=== PATIENT | male | born 1990 | race Caucasian/White ===

== ENCOUNTER 2024-09-27 17:11 | Outpatient (CLI) | payer MEDICAID, SELFPAY ==
[2024-09-27 18:42] LABS: Amphetamine/Metha Screen,Urine Negative ng/ml (<1000); Benzodiazepines Screen,Urine Negative ng/ml (<200)
[2024-09-27 18:43] LABS: Barbiturates Screen,Urine Negative ng/ml (<200)
[2024-09-27 18:44] LABS: Cannabinoid Screen,Urine Negative ng/ml (<50); Cocaine Screen,Urine Negative ng/ml (<300)
[2024-09-27 18:45] LABS: Methadone Screen,Urine Negative ng/ml (<300)
[2024-09-27 18:46] LABS: Opiate Screen,Urine Negative ng/ml (<300); Phencyclidine Screen,Urine Negative ng/ml (<25)
[2024-09-27 18:50] LABS: Basophils # 0.1 K/mm3 (0-0.2); Basophils % 1.1 % (0.1-2.0); Eosinophils # 0.5 K/mm3 (0.0-0.4); Eosinophils % 5.8 % (0.1-12.0); Hematocrit 45.3 % (42.0-52.0); Hemoglobin 15.3 g/dL (14.1-18.0); Lymphocytes # 3.2 K/mm3 (0.7-4.5); Lymphocytes % 41.2 % (10-50); Mean Corpuscular HGB Conc 33.9 g/dL (31.8-35.4); Mean Corpuscular Volume 88.6 fl (80-94); Mean Platelet Volume 8.2 fl (7.4-10.4); Monocytes # 0.5 K/mm3 (0.1-1.0); Neutrophils # 3.6 K/mm3 (1.8-7.8); Platelet Count 207 K/mm3 (142-424); Red Blood Count 5.12 M/mm3 (4.60-6.20); Red Cell Distribution Width 13.9 % (11.5-17.5); White Blood Count 7.7 K/mm3 (4.8-10.8)
[2024-09-27 19:01] LABS: Albumin Level 4.7 g/dl (3.5-5.0); Chloride 102 mmol/L (98-107); Potassium 4.7 mmoL/L (3.5-5.1); Sodium 141 mmol/L (136-145)
[2024-09-27 19:04] LABS: Alanine Aminotransferase 43 U/L (12-78); Albumin/Globulin Ratio 1.5 (1.1-1.8); Alkaline Phosphatase 52 U/L (38-126); Anion Gap 14.7 mEq/L (5-15); Aspartate Amino Transferase 37 U/L (17-59); Bilirubin,Total 0.5 mg/dl (0.2-1.3); Blood Urea Nitrogen 14 mg/dl (9-20); Carbon Dioxide 29 mmol/L (22.0-30.0); Estimated Glomerular Filt Rate 111 ml/min (>60); GFR (African American) 135 ML/MIN (>60); Globulin 3.1 g/dL (1.3-3.2); Total Protein,Serum 7.8 g/dl (6.3-8.2)
[2024-09-27 19:05] LABS: Calcium 9.6 mg/dl (8.4-10.2); Glucose 77 mg/dl (74-100)
[2024-09-27 19:33] LABS: Ethyl Alcohol < 10 mg/dl (0-10)
[2024-09-29 06:16] LABS: Hep A Ab, Total Negative (Negative)
[2024-09-29 12:20] LABS: Rapid Plasma Reagin Ab Titer Non Reactive titer (NonRea<1:1)
[2024-09-29 20:09] LABS: QuantiFERON-TB Gold Plus Negative (Negative)
[2024-10-01 00:03] LABS: Hep A Ab, IGM Negative (Negative)
[2024-10-01 00:04] LABS: HBsAg Screen Negative (Negative); HCV Ab Reactive (Non Reactive); Hep B Core Ab, IgM Negative (Negative)
[2024-10-01 21:08] LABS: Buprenorphine, Urine Positive (Cutoff=10)
[2024-10-02 04:17] LABS: HIV 1 RNA, Real time PCR <20 copies/mL (.)
[2024-10-06 09:58] LABS: PDF: SCANNED IMAGE
[2024-10-06 10:51] LABS: Acetyl Fentanyl NEGATIVE; Acetyl Norfentanyl NEGATIVE; Alfentanil NEGATIVE; Fentanyl NEGATIVE; Norfentanyl NEGATIVE; Norsufentanil NEGATIVE; Sufentanil NEGATIVE
== END 2024-09-27 23:59 | disposition home or self-care (01) ==
LOC: LAB 17:15
PROVIDERS: Visit Provider Nurse Practitioner Family
DX: F11.20 Opioid dependence, uncomplicated (principal); F19.99 Other psychoactive substance use, unspecified with unspecified psychoactive substance-induced disorder; Z20.2 Contact with and (suspected) exposure to infections with a predominantly sexual mode of transmission; Z20.5 Contact with and (suspected) exposure to viral hepatitis; Z91.89 Other specified personal risk factors, not elsewhere classified; Z01.89 Encounter for other specified special examinations
CPT/HCPCS: 36415; 80053; 80074; 80307; 80320; 80354; 85025; 86480; 86593; 86706; 86708; 86803; 87491; 87536; 87563; 87591; 87798; G0480

== ENCOUNTER 2025-06-07 18:22 | Emergency (ER) | payer MEDICAID, SELFPAY ==
[2025-06-07 18:52] VITALS: BP 140/84; PULSE 74; RESP 18; TEMP 36.7; O2SAT 99; BMI 47.1
--- OUTSIDE RECORDS SUMMARY | 2025-06-07 19:07 | XMS_ITS | Data Portability ---
Author Organization [facility] Address [address] [place] [address] Assessment Encounter Date Assessment Date Assessment LastModified by Organization Details LastModified Time 08/21/2023 08/21/2023 Will call with l ab results when available. Begin prescribed medication as written. Advised to drink plenty of fluids, run a cool-mist humidifier in room at night, gargle salt water for sore throat, and get plenty of rest. Patient should avoid over-exertion and reduce exposure to irritants such as smoke, cold, dry air, and dust. Antihistamine and decongestant usage was discussed and recommendations made. Patient understood these instructions and will follow up in the office in 7-10 days if symptoms not improving. Or sooner if symptoms worsen. Educated on s/s that indicate need for immediate evaluation in the ED. Patient verbalized understanding. Not available 08/21/2023 13:52:21 Plan of Treatment Reminders Order Date Submit Date Provider Last Modified By Organization Details Last Modified Time Details Appointments None recorded. Lab CMP, serum or plasma 2022 023 MOISES [facility], [address], [address], [place], [address], 08:38:08 vitamin B12 + folate, serum or blood 2022 023 [facility], [address], [address] [address], [place], [address], 08:38:09 magnesium, serum or plasma 2022 023 MO[facility]ES [facility], [address], [address], [place], [address], 3 08:38:09 Referral None recorded. Procedures None recorded. Surgeries None recorded. Imaging None recorded. Medication Orders amoxicillin 500 mg capsule 2022 023 [email or web address] [facility], [address], [place], [address], 3 14:59:04 Patient TargetsNo targets recorded. Patient InstructionsNo instructions recorded. Reason for Referral None Reported. Results Created Date Observation Date Name Description Value Unit Range Abnormal Flag Note LastModifiedBy Organization Detail LastModifiedTime 08/21/2008/22/2023 COMP. METAB OLIC PANEL (14) glucose 96 mg/dL 70-99 Not Available [facility] ([facility]) [address] [place], [address], 08/22/2023 08:38:08 08/21/20 23 08/22/2023 COMP. METAB OLIC PANEL (14) BUN 10 mg/dL 6-20 Not Available [facility] ([facility]) [address] [place], [address], 08/22/2023 08:38:08 08/21/20 23 08/22/2023 COMP. METAB OLIC PANEL (14) creatinine 0.81 mg/dL 0.76-1 .27 Not Available [facility] ([facility]) [address] [place], [address], 08/22/2023 08:38:08 08/21/2008/22/2023 COMP. METAB OLIC PANEL (14) eGFR 120 mL/mi n/1.7 3 >59 Not Available [facility] ([facility]) [address] [place], [address], 08/22/2023 08:38:08 08/21/20 23 08/22/2023 COMP. METAB OLIC PANEL (14) BUN/creatini ne ratio 12 9-20 Not Available [facility] ([facility]) [address] [place], [address], 08/22/2023 08:38:08 08/21/2008/22/2023 COMP. METAB OLIC PANEL (14) sodium 140 mmol/ L 134-14 4 Not Available [facility] ([facility]) [address] [facility] [place], [address], 08/22/2023 08:38:08 08/21/2008/22/2023 COMP. METAB OLIC PANEL (14) potassium 4.4 mmol/ L 3.5-5. 2 Not Available [facility] ([facility]) [address] [place], [address], 08/22/2023 08:38:08 08/21/2008/22/2023 COMP. METAB OLIC PANEL (14) chloride 103 mmol/ L 96-106 Not Available [facility] ([facility]) [address] [place], [address], 08/22/2023 08:38:08 08/21/2008/22/2023 COMP. METAB OLIC PANEL (14) carbon dioxide, total 27 mmol/ L 20-29 Not Available [facility] ([facility]) [address] [place], [address], 08/22/2023 08:38:08 08/21/20 23 08/22/2023 COMP. METAB OLIC PANEL (14) calcium 8.9 mg/dL 8.7-10 .2 Not Available [facility] ([facility]) [address] [place], [address], 08/22/2023 08:38:08 08/21/2008/22/2023 COMP. METAB OLIC PANEL (14) protein, total 6.8 g/dL 6.0-8. 5 Not Available [facility] ([facility]) [address] [place], [address], 08/22/2023 08:38:08 08/21/20 23 08/22/2023 COMP. METAB OLIC PANEL (14) albumin 4.0 g/dL 4.1-5. 1 below low normal Not Available [facility] ([facility]) [address] [facility], [place], [address], 08/22/2023 08:38:08 08/21/2008/22/2023 COMP. METAB OLIC PANEL (14) globulin, total 2.8 g/dL 1.5-4. 5 Not Available [facility] ([facility]) [address] [place], [address], 08/22/2023 08:38:08 08/21/2008/22/2023 COMP. METAB OLIC PANEL (14) A/G ratio 1.4 1.2-2. 2 Not Available [facility] ([facility]) [address] [facility], [place], [address], 08/22/2023 08:38:08 08/21/2008/22/2023 COMP. METAB OLIC PANEL (14) bilirubin, total 0.5 mg/dL 0.0-1. 2 Not Available [facility] ([facility]) [address] [facility], [place], [address], 08/22/2023 08:38:08 08/21/2008/22/2023 COMP. METAB OLIC PANEL (14) alkaline phosphatase 46 IU/L 44-121 Not Available [facility] ([facility]) [address] [place], [address], 08/22/2023 08:38:08 08/21/2008/22/2023 COMP. METAB OLIC PANEL (14) AST (SGOT) 20 IU/L 0-40 Not Available [facility] ([facility]) [address] [place], [address], 08/22/2023 08:38:08 08/21/2008/22/2023 COMP. METAB OLIC PANEL (14) ALT (SGPT) 30 IU/L 0-44 Not Available [facility] ([facility]) [address] [facility], [place], [address], 08/22/2023 08:38:08 08/21/2008/22/2023 VITAM IN B12 AND FOLAT E vitamin B12 359 pg/mL 232-12 45 Not Available [facility] ([facility]) [address] [facility], [place], [address], 08/22/2023 08:38:09 08/21/2008/22/2023 VITAM IN B12 AND FOLAT E folate (folic acid), serum 9.3 NG/mL >3.0 A serum folat e vi ntrat ion of less than 3.1 ng/mL is consi dered to repre sent clini ele defic iency . Not Available [facility] ([facility]) [address] [facility], [place], [address], 08/22/2023 08:38:09 08/21/2008/22/2023 MAGNE SIUM magnesium 2.0 mg/dL 1.6-2. 3 Not Available [facility] ([facility]) [address] [facility], [place], [address], 08/22/2023 08:38:09 Result Notes None recorded. Procedures Surgical History Date Name Laterality Status Provider Name and Address Organization Details Recorded Time Cerumen Removal completed Krystina Dalal, [employer] [facility] [address], [place], [address], [facility] - [facility] 08/21/2023 13:48:56 Imaging Results None recorded. Procedure Notes None recorded. Medical Equipment None Reported. Allergies No known drug allergies Medications Name Sig Start Date Stop Date Status Note LastModified by Organization Details LastModified Time amoxicill in 500 mg capsule TAKE ONE (1) CAPSULE EVERY 12 HOURS BY ORAL ROUTE FOR 10 DAYS. 10/06 completed Not Available Not Available Not Available tramadol 1 q 12h 09/10 completed tramadol 50mg;Rec orded Status: Recorded on: 09/03/20 11 9:22AM;U ser: [email or web address] pearce;Est. Completi on: 09/10/20 11;Indic ation: - (-5);Jerri nted: 09/03/20 11 Not Available Not Available Not Available Keflex 1 bid 09/17 completed keflex 500mg;Re corded Status: Recorded on: 09/03/20 11 9:22AM;U ser: [email or web address] rydada;Est. Completi on: 09/17/20 11;Indic ation: - (-5);Jerri nted: 09/03/20 11 Not Available Not Available Not Available Mucinex D 1 bid 09/13 completed mucinex d;Record ed Status: Recorded on: 09/03/20 11 9:22AM;U ser: som pearce;Est. Completi on: 09/13/20 11;Indic ation: - (-5);Jerri nted: 09/03/20 11 Not Available Not Available Not Available Vitals Date Recorded Body weight Body mass index (BMI) Body height Body temperature Heart rate Oxygen saturation Oxygen saturation in Arterial blood by Pulse oximetry Respiratory rate Pain severity - 0-10 verbal numeric rating [Score] - Reported Systolic And Diastolic Provider Name and Address Organization Details Last Updated DateTime 3 764556. 9 g 38.4 kg/m2 180.34 cm 97.4 [degF] 81 /min 96 % 96 % 20 /min 0 136/86 mm[Hg] Christina Youngblood [place] - [facility] 3 13:13:04 Social History Question Answer Notes LastModified by Organizat ion Details LastModified Time Tobacco Smoking Status Current Every Day Smoker Christina badillo, [place] - [facility] 08/21/2023 13:17:07 What Is Your Level Of Caffeine Consumption? Moderate Information not available 08/21/2023 What Was The Date Of Your Most Recent Tobacco Screening? 08/21/2023 Information not available 08/21/2023 What Is Your Current Pack Years? 20-29packyear s Information not available 08/21/2023 At What Age Did You Start Smoking Tobacco? 10 Information not available 08/21/2023 How Much Tobacco Do You Smoke? 1 PPD Information not available 08/21/2023 Has Tobacco Cessation Counseling Been Provided? Yes Information not available 08/21/2023 On What Date Was Tobacco Cessation Counseling Provided? 08/21/2023 Information not available 08/21/2023 How Many Years Have You Smoked Tobacco? 22 Information not available 08/21/2023 Sex: Male Functional Status Question Answer Note LastModified by Organizat ion Details LastModified Time Do you use any illicit or recreational drugs? No Information not available 08/21/2023 Do you or have you ever used any other forms of tobacco or nicotine? No Information not available 08/21/2023 What is your level of alcohol consumption? None Information not available 08/21/2023 Mental Status None recorded. Family History Relationship Description Onset Age of this Age Resolved Age Notes LastModified by Organization Details LastModified Time Father Heart disease Not available 2022 13:15:45 Father Diabetes mellitus Not available 2022 13:16:00 Mother Heart disease Not available 2022 13:15:45 Mother Diabetes mellitus Not available 2022 13:16:01 Medical History No medical history recorded. Immunizations Vaccine Type Date Status Note Provider Nam e and Address Organization Details Recorded Time COVID-19, mRNA, LNP-S, PF, 100 mcg/0.5mL dose or 50 mcg/0.25mL dose 09/24/2021 completed Christina badillo, [place] - [facility] 08/21/2023 13:14:50 COVID-19, mRNA, LNP-S, PF, 100 mcg/0.5mL dose or 50 mcg/0.25mL dose 10/17/2021 completed Christina Youngblood null, [place] - [facility] 08/21/2023 13:14:50 Past Encounters Encounter ID Performer Location Encounter Start Date Encounter Closed Date Diagnosis/Indication Diagnosis SNOMED-CT Code Diagnosis ICD10 Code Diagnosis Note [id number] [facility] [address] [place] [address] 09/03/2011 00:00:00 [id number] Krystina Dalal, MARLEEN [facility] [address] [place] [id number] 08/21/2023 12:54:22 08/21/2023 14:09:41 Paresthesia of upper limb 68223717 R20.2 Impacted c erumen in right ear 9832472059 462305 H61.21 Cough 79911968 R05.9 Acute left otitis media 995147031 H66.92 Health Concerns Section Related Observation LastModified by Organization Detai ls LastModified Time None Recorded Concern Status LastModified by Organization Details LastModified Time None Recorded Advance Directives Directive None Recorded Payers Insurance Date Sequence Insurance Name Policy Number Policy Boyce Covered Member ID Boyce Member ID Guarantor Name 08/21/2023 1 *SELF PAY* Tiburcio Johnson 08/21/2023 1 *SELF PAY* Tiburcio Johnson
[2025-06-07 21:51] LABS: Hematocrit 41.2 % (42.0-52.0); Hemoglobin 13.8 g/dL (14.1-18.0); Immature Granulocytes % 0.3 %; Mean Corpuscular HGB Conc 33.5 g/dL (31.8-35.4); Mean Corpuscular Hemoglobin 29.9 pg (27.0-31.2); Mean Corpuscular Volume 89.2 fl (80-94); Nucleated Red Blood Cells % 0 %; Platelet Count 222 K/mm3 (142-424); Red Blood Count 4.62 M/mm3 (4.60-6.20); Red Cell Distribution Width-SD 43.5 fL; White Blood Count 7.0 K/mm3 (4.8-10.8)
[2025-06-07 21:58] LABS: Albumin Level 4.1 g/dl (3.5-5.0); Chloride 99 mmol/L (98-107); Potassium 4.2 mmoL/L (3.5-5.1); Sodium 136 mmol/L (136-145)
--- NOTE | 2025-06-07 21:58 | ED_ITS ---
Discharge Plan Disposition Patient Disposition: Home, Self-Care Condition: Good Prescriptions Prescriptions: No Action buprenorphine-naloxone 8-2 mg tablet, sublingual 1.5 tab SUBLINGUAL DAILY Patient Comments: PLACE 1.5 TABLETS BY SUBLINGUAL ROUTE EVERY DAY Referrals Follow up/Referrals: Provider,MD Stefan [Primary Care Provider, Medical] - See instructions Suhas Vasquez MD [Staff Physician, Family Practice] - See instructions Activity Restrictions/Add. Instructions Additional Instructions/Restrictions: Please wear compression stockings to help with swelling. If you have any new or worsening symptoms please return. I want you to call and get an appointment with primary care Dr. Vasquez. Clinical Impressions Clinical Impression: Bilateral edema of lower extremity Stand Alone Forms Stand Alone Forms: Work/School Release Instructions Patient Instructions: DI for Dependent Edema Print Language Print Language: Sinhala Discharge ED Provider: Fco Cano Adult HPI General Chief complaint: Weakness Stated complaint: Legs swelling,body aches,no energy Time Seen by Provider: 06/07/25 18:45 Mode of Arrival: Ambulatory Source of Information: Patient and Significant Other Description of Symptoms (Recalled from ER Triage Doc. by RN): Patient presents to ED with c/o leg swelling with pitting edema, generally feeling weak, and pain all over. Patient reports this is not a new issue, states he was seen elsewhere and given a diuretic. Patient reports he was recently dx with hepatits c and given a medication for it which has caused his leg swelling. History of Present Illness HPI narrative: This is a 34-year-old male patient, with past medical history of IV drug use currently in remission as well as hepatitis C, who is presenting to the emergency department today for evaluation of his lower extremities. He states that on his right lower extremity he feels an indention in the pretibial region that is causing him a great deal of concern. He states that he was seen by a healthcare provider recently and they did not perform any workup for this indention in his leg and they sent him home. Upon inquiring about other symptoms, the patient does tell me that he has had worsening lower extremity edema bilaterally over the course of last 4 months. He has recently become employed and is working for several hours at a time where he is not able to sit down. He has not had any fevers or chills. No night sweats. No weight loss. He has not had any erythema or asymmetry of his lower extremities. He specifically denies chest pain and shortness of breath. Related Data Home Medications ?Medication ?Instructions ?Recorded ?Confirmed buprenorphine 8 mg-naloxone 2 mg 1.5 tab sublingual DA DYLAN 06/07/25 06/07/25 sublingual tablet Allergies Allergy/AdvReac Type Severity Reaction Status Date / Time No Known Allergies Allergy Verified 06/07/25 19:39 [facility] Disclaimer: The information contained in this section may have been updated after the patient was seen, as this information can be updated by other users. Medical History (Updated 06/07/25 @ 23:02 by Fco Cano DO) Drug abuse in remission Hepatitis C Social History Smoking Status: Current every day smoker alcohol intake: former current occupational status: employed Travel in the last 8 weeks?: None ROS Obtained: Yes Systems reviewed as appropriate & no additional complaints except as documented Physical Exam General General appearance: alert and in no apparent distress Head Head exam: atraumatic and normocephalic Eye Eye exam: Present PERRL and EOMI ENT ENT exam: Present normal oropharynx and mucous membranes moist Neck Neck exam: Present full ROM and trachea midline Respiratory Respiratory exam: Present normal lung sounds bilaterally; Absent respiratory distress Cardiovascular Cardiovascular exam: Present regular rate and normal rhythm Abdominal Exam Abdominal exam: Present soft; Absent tenderness Extremities Exam Extremities exam: Present normal inspection; Absent tenderness Back Exam Back exam: Absent vertebral tenderness Neurological Exam Neurological exam: Present alert and oriented X3 Skin Skin exam: Present warm and dry Medical Decision Making Medical Records Medical records reviewed: Yes I reviewed the patient's medical records. Screening: Per USPSTF and CDC recommendations, given the prevalence of disease in our region, it is our hospital?s policy to screen for HIV and viral Hepatitis for all patients aged 18 and over and those with ongoing risk factors. Cirilo Inquiry Pt receiving controlled substance: No Cirilo was queried for this patient: No Vital Signs: 06/07/25 18:52 06/07/25 18:52 06/07/25 22:00 Temperature 98.1 F 98.1 F Temperature Source Oral Oral Pulse Rate 74 70 Pulse Rate [Right] 74 Respiratory Rate 18 18 16 Blood Pressure 140/84 162/94 H Blood Pressure [Right Arm] 140/84 Blood Pressure Mean [Right Arm] 102 Blood Pressure Source Blood Pressure Position 02 Sat by Pulse Oximetry 99 99 100 Oxygen Delivery Method Room Air Room Air Room Air 06/07/25 23:05 Temperature 98.0 F Temperature Source Oral Pulse Rate 88 Pulse Rate [Right] Respiratory Rate 20 Blood Pressure 144/82 H Blood Pressure [Right Arm] Blood Pressure Mean [Right Arm] Blood Pressure Source Automatic Cuff Blood Pressure Position Standing 02 Sat by Pulse Oximetry Oxygen Delivery Method Room Air Lab Data Lab Results 06/07/25 21:40: WBC 7.0, RBC 4.62, Hgb 13.8 L, Hct 41.2 L, MCV 89.2, MCH 29.9, MCHC 33.5, RDW 13.3, Plt Count 222, MPV 9.9, Neut % (Auto) 49.1, Lymph % (Auto) 38.0, Frederick % (Auto) 8.1, Eos % (Auto) 4.2, Baso % (Auto) 0.3, Neut # (Auto) 3.4, Lymph # (Auto) 2.6, Frederick # (Auto) 0.6, Eos # (Auto) 0.3, Baso # (Auto) 0.0, Sodium 136, Potassium 4.2, Chloride 99, Carbon Dioxide 32 H, Anion Gap 9.2, BUN 14, Creatinine 0.70, Estimated Creat Clear 158, Estimated GFR 129, Est GFR ( Amer) 156, Glucose 92, Calcium 9.3, Total Bilirubin 0.5, AST 71 H, ALT 127 H, Alkaline Phosphatase 53, Troponin I < 0.01, NT-Pro-B Natriuret Pep 75.7, Total Protein 8.5 H, Albumin 4.1, Globulin 4.4 H, Albumin/Globulin Ratio 0.9 L 06/07/25 21:40 06/07/25 21:40 Orders (Tests/Meds): ORDERS Category Date Time Status POCUS Point of Care (ER Only) Stat Exams 06/07/25 21:00 Completed BNP [NT Pro Brain Natriuretic Pep.] Stat Lab 06/07/25 21:40 Completed CBC w/Auto Diff [Complete Blood Count Auto Diff] Stat Lab 06/07/25 21:40 Completed CMP [Comprehensive Metabolic Panel] Stat Lab 06/07/25 21:40 Completed Trop I [Troponin I] Stat Lab 06/07/25 21:40 Completed Blood Culture Stat Micro 06/07/25 21:28 Ordered Medical Decision Narrative: In summary, this is a 34-year-old male patient who is presenting to the emergency department today for evaluation of an indention appreciated on his pretibial region of the right lower extremity down near the ankle. In addition to this he complains of bilateral lower extremity edema that has been present over the course of the last 4 months. The patient's comorbidities include a history of IV drug use which is currently in remission as well as hepatitis C. On initial evaluation of the patient they were resting comfortably in no acute distress and nontoxic in appearance. They are hemodynamically stable, saturating well room air, and are neurologically intact. On physical examination the patient's heart and lungs are clear to auscultation bilaterally. He appears well-perfused distally. He does have pitting edema of his pretibial regions bilaterally. He is morbidly obese. Differential diagnosis includes gravity dependent edema, heart failure, odd presentation of endocarditis in the setting of prior IV drug use, among others. Initial workup to include hematologic labs as well as bedside POCUS assessment. I did perform a bedside POCUS assessment of his pretibial region to ensure him that this indention in his right pretibial region was just a defect in the subcutaneous fat. Upon obtaining this POCUS assessment I was actually unable to see any change in the architecture of his subcutaneous tissues at the level of this indention but I could see that there was lots of edema present within the pretibial subcutaneous tissues. In addition I did perform a POCUS assessment of his heart given the edema noticed on physical examination. This assessment was grossly normal. Please see procedure note for details. Hematologic labs were personally interpreted by me and demonstrated nonischemic troponins as well as a normal BNP. This is ultimately reassuring. In addition to this we did obtain blood cultures given his high risk history of IV drug use. I have informed the patient of his workup today and strongly advised that he establish care with a primary care provider. We have placed a referral to Dr. Vasquez for him to establish care in the clinic. I have also recommended that he start using compression stockings while at work given my suspicion for gravity dependent edema of his lower extremities. Patient acknowledges understanding and importance of this plan. At this time all questions have been answered and all parties are agreeable with the decision to discharge home Procedures Miscellaneous Procedure Procedure Performed: Limited soft tissue ultrasound Indication: Soft tissue swelling Identified structures: Pretibial subcutaneous tissues Location: Right pretibial region Findings: Edema present within the soft tissues of the right pretibial region Impression: Pretibial edema Images were saved to permanent archive This study was technically adequate Soft tissue CPT codes Neck: 42898-49 Upper extremity: 67512?26 Axilla: 01845-63 Chest wall: 74182-94 Breast: 7664 1-2 6 (complete), 69825-85-rgarq (Limited) Upper back: 08307-60 Abdominal wall: 19345-16 Pelvic wall: 84583-61 Lower extremity: 39175-83 Other soft tissue: 51914-17 This study was performed by me and I personally interpreted all images/videos. Based on my clinical judgment these images were [adequate/inadequate] and [did/did not] necessitate further imaging. Limited cardiac ultrasound note Indication: Lower extremity edema Identified cardiac views: Cardiac parasternal long Cardiac parasternal short Cardiac apical four-chamber Cardiac subxiphoid Findings: Cardiac activity: Present Gross wall motion: Normal Pericardial effusion: Absent Right heart strain: Absent Impression: EPSS is less than 10 suggestive of adequate ejection fraction. RV LV ratio is less than 1 suggestive of no right heart strain. No evidence of pericardial effusion. For all intents and purposes this is a normal cardiac exam Images were saved to permanent archive This study was technically adequate CPT: 01023 This study was performed by me and I personally interpreted all images/videos. Based on my clinical judgment these images were [adequate/inadequate] and [did/did not] necessitate further imaging. Critical Care Critical Care Time Critical Care Time: No
[2025-06-07 22:00] VITALS: BP 162/94; PULSE 70; RESP 16; O2SAT 100
[2025-06-07 22:00] LABS: Blood Urea Nitrogen 14 mg/dl (9-20); Creatinine Clearance Estimated 158 mL/min (50-200); Creatinine,Serum 0.70 mg/dl (0.66-1.25); Estimated Glomerular Filt Rate 129 ml/min (>60); GFR (African American) 156 ML/MIN (>60)
[2025-06-07 22:01] LABS: Alanine Aminotransferase 127 U/L (12-78); Albumin/Globulin Ratio 0.9 (1.1-1.8); Alkaline Phosphatase 53 U/L (38-126); Anion Gap 9.2 mEq/L (5-15); Aspartate Amino Transferase 71 U/L (17-59); Bilirubin,Total 0.5 mg/dl (0.2-1.3); Calcium 9.3 mg/dl (8.4-10.2); Carbon Dioxide 32 mmol/L (22.0-30.0); Globulin 4.4 g/dL (1.3-3.2); Glucose 92 mg/dl (74-100); Total Protein,Serum 8.5 g/dl (6.3-8.2)
[2025-06-07 22:10] LABS: NT Pro Brain Natriuretic Pep. 75.7 pg/mL (0-125)
[2025-06-07 22:15] LABS: Troponin I < 0.01 ng/ml (0.00-0.034)
--- NOTE | 2025-06-07 22:25 | PC.NURSE ---
Patient refuses 2nd blood culture stating I'm not getting stuck a 3 rd time.
[2025-06-07 23:05] VITALS: BP 144/82; PULSE 88; RESP 20; TEMP 36.7; O2SAT 97
== END 2025-06-07 23:10 | disposition home or self-care (01) ==
PROVIDERS: Emergency Provider Student in an Organized Health Care Education/Training Program
DX: R60.0 Localized edema (principal)
CPT/HCPCS: 80053; 83880; 84484; 85025; 87040; 99284